=== PATIENT | female | born 1945 | race Caucasian/White ===

== ENCOUNTER 2018-11-11 07:57 | Day surgery (SDC) | payer MEDICARE, MEDICAID ==
[2018-11-11 08:24] VITALS: BMI 35.2
[2018-11-11] MEDS ORDERED: Lactated Ringer's 500 ML IV ONE (09:29)
[2018-11-11] MEDS ORDERED: Propofol 10 mg/ml Inj (20 ML) ONE ×2 (09:33→10:08)
[2018-11-11 10:34] VITALS: TEMP 96.8
[2018-11-11 10:47] VITALS: O2SAT 100
[2018-11-11 11:02] VITALS: RESP 16
[2018-11-11 11:57] VITALS: BP 156/76; PULSE 61
== END 2018-11-11 11:55 | disposition home or self-care (01) ==
LOC: C.ENDO 07:57
PROVIDERS: ATTEND Internal Medicine Gastroenterology
DX: Z12.11 Encounter for screening for malignant neoplasm of colon (principal); K21.0 Gastro-esophageal reflux disease with esophagitis; K29.70 Gastritis, unspecified, without bleeding; I10 Essential (primary) hypertension; K64.1 Second degree hemorrhoids; Q43.8 Other specified congenital malformations of intestine
CPT/HCPCS: 43239; 45380; 88305; 88312; 88313; 88342; J2704; J7120